=== PATIENT | female | born 2000 | race Caucasian/White ===

== ENCOUNTER 2020-08-11 18:45 | Emergency (ER) | payer BC ==
[~2020-08-11] VITALS: Ht 167.6 cm; Wt 63.6 kg
[2020-08-11 18:57] VITALS: TEMP 98.8
[2020-08-11] MEDS ORDERED: DECADRON 4MG TAB4 MG PO (20:25)
[2020-08-11 21:54] VITALS: BP 128/88; PULSE 86
== END 2020-08-11 21:59 | disposition home or self-care (01) ==
LOC: COL.ER 18:45
DX: T39.395A Adverse effect of other nonsteroidal anti-inflammatory drugs [NSAID], initial encounter (principal)
CPT/HCPCS: J8540